=== PATIENT | male | born 1960 | race Caucasian/White ===

== ENCOUNTER 2017-06-22 17:13 | Inpatient (IN) | payer OTHER ==
[~2017-06-22] VITALS: Ht 175.3 cm; Wt 97.0 kg
[2017-06-22] VITALS (9 sets, daily range): BP systolic 153; BP diastolic 88; PULSE 104; RESP 18; TEMP 98.2; O2SAT 98–100
[2017-06-22] MEDS ORDERED: PROPOFOL 1000 MG/100 ML INJ 100 ML ONE (17:21)
[2017-06-22] MEDS ORDERED: DIPHTH/TETANUS/ACEL PERTUSSIS (BOOSTER) 0.5 ML VIAL/PFS IM ONE (17:24)
[2017-06-22] MEDS ORDERED: ceFAZolin 2 GM PREMIX 50 ML ONE (17:24)
[2017-06-22 17:39] LABS: I-STAT POTASSIUM 4.3 MMOL/L (3.5-4.9)
[2017-06-22 17:41] LABS: AUTOMATED NEUTROPHIL # 9.4 TH/MM3 (1.8-7.7); BASOPHIL # 0.1 TH/MM3 (0-0.2); BASOPHIL % 0.4 % (0.0-2.0); EOSINOPHIL % 0.2 % (0.0-4.0); HEMATOCRIT 45.4 % (39.0-51.0); HEMO FLAGS DIFF FINAL; LYMPH % 21.2 % (9.0-44.0); LYMPHOCYTE # 2.7 TH/MM3 (1.0-4.8); MEAN CELL VOLUME 93.1 FL (80.0-100.0); MEAN CORPUSCULAR HEMOGLOBIN 31.6 PG (27.0-34.0); NEUT % 73.2 % (16.0-70.0); PLATELET COUNT 354 TH/MM3 (150-450); RED BLOOD COUNT 4.88 MIL/MM3 (4.50-5.90); RED CELL DISTRIBUTION WIDTH 13.6 % (11.6-17.2); WHITE BLOOD COUNT 12.8 TH/MM3 (4.0-11.0)
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
[2017-06-22] MEDS ORDERED: SODIUM CHLORIDE 0.9% FLUSH 10 ML FLUSH IV FLUSH PRN ×2 (17:45→19:00)
[2017-06-22] MEDS ORDERED: NALOXONE HCL 0.4 MG/ML AMP IV PUSH PRN (17:45)
[2017-06-22] MEDS ORDERED: ONDANSETRON HCL 4 MG/2 ML VIAL IV PUSH PRN ×2 (17:45→19:00)
[2017-06-22] MEDS ORDERED: PROPOFOL 1000 MG/100 ML INJ 100 ML IV PRN (17:45)
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
[2017-06-22 17:57] LABS: APTT (PATIENT) 19.6 SEC (24.3-30.1); PROTHROMBIN TIME - PATIENT 10.7 SEC (9.8-11.6)
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
[2017-06-22] MEDS ORDERED: MAGNESIUM HYDROXIDE SUSP 30 ML CUP PO PRN (19:00)
[2017-06-22] MEDS ORDERED: BISACODYL 10 MG SUPP RECTAL PRN (19:00)
[2017-06-22] MEDS ORDERED: SENNOSIDES 8.6 MG TAB PO PRN (19:00)
[2017-06-22] MEDS ORDERED: LACTULOSE SYRUP 20 GM/30 ML CUP PO PRN (19:00)
[2017-06-22] MEDS ORDERED: RESP: ALBUTEROL 2.5 MG/3 ML NEB (PRN) INH (19:00)
[2017-06-22] MEDS ORDERED: CHLORHEXIDINE GLUCONATE 2 % 1 PACK (2 CLOTHS) TOP PRN (19:00)
[2017-06-22] MEDS ORDERED: GLUCAGON 1 MG/ML VIAL OTHER PRN (19:00)
[2017-06-22] MEDS ORDERED: MISCELLANEOUS NURSING INFORMATION XX SCH (19:00)
[2017-06-22] MEDS ORDERED: DEXTROSE 50% IN WATER 50 ML VIAL(D50) IV PUSH PRN (19:00)
[2017-06-22] MEDS ORDERED: PRED1 PO (19:03)
[2017-06-22] MEDS ORDERED: MELO15TA20 PO (19:03)
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
[2017-06-22] MEDS ORDERED: IOHEXOL 350 MG/ML 10 ML VIAL (for RAD DIAG) IVCONTRAST ONE (19:28)
[2017-06-22] MEDS: PROPOFOL 1000 MG/100 ML IV PRN (19:35)
[2017-06-22 19:40] LABS: BLOOD GAS BASE EXCESS -0.8 mmol/L (-2-2); BLOOD GAS CARBOXYHEMOGLOBIN 0.6 % (0-4); BLOOD GAS HCO3 23 mmol/L (22-26); BLOOD GAS METHEMOGLOBIN 1.3 % (0-2); BLOOD GAS O2 HGB SATURATION 98 % (90-100); BLOOD GAS OXYGEN CONTENT 20.7 Vol % (12.0-20.0); BLOOD GAS PCO2 39 mmHg (38-42); BLOOD GAS PO2 428 mmHg (61-120); BLOOD GAS TOTAL HGB 14.3 G/DL (12.0-16.0); CRITICAL VALUE NO; DRAW SITE RT RADIAL; FIO2 100 %; NUMBER OF ARTERIAL PUNCTURES 1; OXYGEN DEVICE VENTILATOR; STAT NO; TEMP CORR TO 98.6; ULNAR PULSE PRESENT; VENT SETTINGS PRVC/AC
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
[2017-06-22] MEDS: SODIUM CHLOR 0.9% 1000 ML INJ 1,000 ML IV SCH (20:34)
[2017-06-22] MEDS: CHLORHEXIDINE 0.12% (ORAL KIT) 15 ML CUP MT SCH (20:35)
[2017-06-22] MEDS: RESP: ALBUTEROL 2.5 MG/IPRATROPIUM 0.5 MG NEB (SCH) INH (20:44)
[2017-06-22] MEDS ORDERED: SODIUM CHLORIDE 0.9% FLUSH 10 ML FLUSH IV FLUSH SCH (21:00)
[2017-06-22] MEDS: SODIUM CHLORIDE 0.9% FLUSH 10 ML FLUSH IV FLUSH SCH (21:00)
[2017-06-22] MEDS: DOCUSATE SODIUM 50 MG/SENNA 8.6 MG TAB PO SCH (21:20)
[2017-06-22] MEDS: levETIRAcetam INJ 500 MG in SODIUM CHLORIDE 0.9% INJ 100 ML IV SCH (21:20)
[2017-06-22] MEDS: PANTOPRAZOLE SODIUM 40 MG VIAL IV PUSH SCH (21:20)
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
[2017-06-22] MEDS: INSULIN NovoLIN REGULAR SUPPLEMENTAL SCALE SQ SCH (23:42)
[2017-06-23] VITALS (18 sets, daily range): BP systolic 127–154; BP diastolic 77–84; PULSE 16–110; RESP 16–18; TEMP 99–100.6; O2SAT 100
[2017-06-23] MEDS: PROPOFOL 1000 MG/100 ML IV PRN ×8 (01:58→23:51)
[2017-06-23] MEDS: CHLORHEXIDINE GLUCONATE 2 % 1 PACK (2 CLOTHS) TOP SCH (02:53)
[2017-06-23] MEDS: SODIUM CHLOR 0.9% 1000 ML INJ 1,000 ML IV SCH ×3 (03:11→23:52)
[2017-06-23] MEDS: RESP: ALBUTEROL 2.5 MG/IPRATROPIUM 0.5 MG NEB (SCH) INH ×4 (03:29→20:15)
[2017-06-23 05:12] LABS: AUTOMATED NEUTROPHIL # 8.8 TH/MM3 (1.8-7.7); EOSINOPHIL % 0.2 % (0.0-4.0); HEMATOCRIT 40.6 % (39.0-51.0); LYMPH % 15.9 % (9.0-44.0); MEAN CELL VOLUME 93.9 FL (80.0-100.0); MEAN CORPUSCULAR HEMOGLOBIN 32.1 PG (27.0-34.0); MEAN CORPUSCULAR HGB CONC 34.1 % (32.0-36.0); MONO % 13.2 % (0.0-8.0); NEUT % 70.7 % (16.0-70.0); PLATELET COUNT 263 TH/MM3 (150-450); RED BLOOD COUNT 4.32 MIL/MM3 (4.50-5.90); RED CELL DISTRIBUTION WIDTH 13.5 % (11.6-17.2); WHITE BLOOD COUNT 12.4 TH/MM3 (4.0-11.0)
[2017-06-23 05:26] LABS: HEMO FLAGS AUTO DIFF
[2017-06-23 05:38] LABS: BICARBONATE 26.4 MEQ/L (21.0-32.0); MAGNESIUM 2.2 MG/DL (1.5-2.5)
[2017-06-23] MEDS: INSULIN NovoLIN REGULAR SUPPLEMENTAL SCALE SQ SCH ×3 (06:00→18:00)
--- NOTE | 2017-06-23 06:24 | RADRPT ---
EXAM DATE/TIME: 06/23/2017 05:34 [facility] COMPARISON: CHEST SINGLE AP, June 22, 2017, 17:14. INDICATIONS : Shortness of breath. MEDICAL HISTORY : None. SURGICAL HISTORY : None. ENCOUNTER: Subsequent ACUITY: 2 days PAIN SCORE: Non-responsive. LOCATION: Bilateral chest FINDINGS: A single view of the chest demonstrates the endotracheal tube is 1 cm above the ministerio. There is a na sogastric good position. Stable left basilar atelectasis. No visible pneumothorax. The cardiomediast inal contours are unremarkable. Osseous structures are intact. CONCLUSION: ET tube 1 cm above the ministerio. Some atelectasis left lung base Suresh Salazar MD on June 23, 2017 at 6:22 Board Certified Radiologist. This report was verified electronically.
[2017-06-23 07:17] LABS: PLATELET ESTIMATE SMEAR NORMAL (NORMAL); PLATELET MORPHOLOGY NORMAL (NORMAL); SCAN/DIFF AUTO DIFF CONFIRMED; TOXIC GRANULATION 1+ (NORMAL)
[2017-06-23] MEDS: CHLORHEXIDINE 0.12% (ORAL KIT) 15 ML CUP MT SCH ×2 (08:00→23:52)
[2017-06-23 08:54] LABS: BLOOD GAS BASE EXCESS 1.4 mmol/L (-2-2); BLOOD GAS CARBOXYHEMOGLOBIN 1.1 % (0-4); BLOOD GAS HCO3 25 mmol/L (22-26); BLOOD GAS O2 HGB SATURATION 97 % (90-100); BLOOD GAS OXYGEN CONTENT 18.6 Vol % (12.0-20.0); BLOOD GAS PCO2 36 mmHg (38-42); BLOOD GAS PO2 117 mmHg (61-120); BLOOD GAS TOTAL HGB 13.5 G/DL (12.0-16.0); CRITICAL VALUE NO; OXYGEN DEVICE VENTILATOR; TEMP CORR TO 98.6
[2017-06-23 08:55] LABS: DRAW SITE LT RADIAL; FIO2 40 %; NUMBER OF ARTERIAL PUNCTURES 1; STAT NO; ULNAR PULSE PRESENT; VENT SETTINGS PRVC/16/550/1.0/+5
[2017-06-23] MEDS: SODIUM CHLORIDE 0.9% FLUSH 10 ML FLUSH IV FLUSH SCH ×2 (09:00→23:53)
[2017-06-23] MEDS: BACITRACIN OPHT OINT 3.5 GM TUBO LEFT EYE SCH (09:00)
[2017-06-23] MEDS: NEOMYCIN/POLYMYXIN/BACITRACIN OINT 15 GM TUBE TOPICAL SCH ×2 (09:00→23:53)
[2017-06-23] MEDS: POVIDONE IODINE 10% OINT 30 GM TUBE TOPICAL SCH (09:00)
[2017-06-23] MEDS: levETIRAcetam INJ 500 MG in SODIUM CHLORIDE 0.9% INJ 100 ML IV SCH ×2 (09:21→20:39)
[2017-06-23] MEDS: DOCUSATE SODIUM 50 MG/SENNA 8.6 MG TAB PO SCH ×2 (09:21→20:39)
[2017-06-23] MEDS: MULTIVITAMIN TAB PO SCH (09:21)
[2017-06-23] MEDS: FOLIC ACID 1 MG TAB PO SCH (09:21)
[2017-06-23] MEDS: ARTIFICIAL TEARS OPTH SOLN 15 ML BTL EACH EYE SCH ×3 (09:22→18:00)
[2017-06-23] MEDS: THIAMINE INJ 100 MG in SODIUM CHLORIDE 0.9% INJ 100 ML IV SCH (09:22)
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
[2017-06-23] MEDS: fentaNYL 50 MCG/HR PATCH T-DERMAL SCH (10:56)
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
[2017-06-23] MEDS: PANTOPRAZOLE SODIUM 40 MG VIAL IV PUSH SCH (20:39)
[2017-06-24] VITALS (18 sets, daily range): BP systolic 97–159; BP diastolic 56–91; PULSE 82–116; RESP 16–21; TEMP 100–101.8; O2SAT 99–100
[2017-06-24] MEDS: MORPHINE SULFATE 4 MG/ML INJ IV PUSH PRN ×2 (00:29→04:45)
[2017-06-24] MEDS: RESP: ALBUTEROL 2.5 MG/IPRATROPIUM 0.5 MG NEB (SCH) INH ×4 (03:59→20:19)
[2017-06-24] MEDS: CHLORHEXIDINE GLUCONATE 2 % 1 PACK (2 CLOTHS) TOP SCH (04:00)
[2017-06-24 04:13] LABS: AUTOMATED NEUTROPHIL # 8.9 TH/MM3 (1.8-7.7); BASOPHIL # 0.1 TH/MM3 (0-0.2); BASOPHIL % 0.5 % (0.0-2.0); EOSINOPHIL % 0.4 % (0.0-4.0); HEMATOCRIT 38.5 % (39.0-51.0); HEMO FLAGS DIFF FINAL; LYMPH % 15.6 % (9.0-44.0); LYMPHOCYTE # 1.9 TH/MM3 (1.0-4.8); MEAN CELL VOLUME 93.9 FL (80.0-100.0); MEAN CORPUSCULAR HEMOGLOBIN 31.8 PG (27.0-34.0); MEAN CORPUSCULAR HGB CONC 33.8 % (32.0-36.0); MONO % 12.2 % (0.0-8.0); NEUT % 71.3 % (16.0-70.0); PLATELET COUNT 211 TH/MM3 (150-450); RED BLOOD COUNT 4.09 MIL/MM3 (4.50-5.90); RED CELL DISTRIBUTION WIDTH 13.4 % (11.6-17.2); WHITE BLOOD COUNT 12.5 TH/MM3 (4.0-11.0)
[2017-06-24 04:47] LABS: ALKALINE PHOSPHATASE 39 U/L (45-117); ALT (GPT) 54 U/L (12-78); ANION GAP 9 MEQ/L (5-15); AST (GOT) 53 U/L (15-37); BICARBONATE 26.5 MEQ/L (21.0-32.0); BLOOD UREA NITROGEN 9 MG/DL (7-18); CHLORIDE 106 MEQ/L (98-107); GLOMERULAR FILTRATION RATE 76 ML/MIN (>89); POTASSIUM 3.7 MEQ/L (3.5-5.1); SODIUM (NA) 141 MEQ/L (136-145); TOTAL BILIRUBIN ADULT 0.7 MG/DL (0.2-1.0)
[2017-06-24] MEDS: INSULIN NovoLIN REGULAR SUPPLEMENTAL SCALE SQ SCH ×4 (06:00→18:00)
--- NOTE | 2017-06-24 06:29 | RADRPT ---
EXAM DATE/TIME: 06/24/2017 06:02 [facility] COMPARISON: CHEST SINGLE AP, June 23, 2017, 5:34. INDICATIONS : Short of breath. MEDICAL HISTORY : None. SURGICAL HISTORY : None. ENCOUNTER: Subsequent ACUITY: 3 days PAIN SCORE: Non-responsive. LOCATION: Bilateral chest FINDINGS: A single view of the chest demonstrates the endotracheal tube and nasogastric are in good position. M inimal retrocardiac infiltrate is unchanged. Right lung is clear. The cardiomediastinal contours are unremarkable. Osseous structures are intact. CONCLUSION: Normal examination. Suresh Salazar MD on June 24, 2017 at 6:27 Board Certified Radiologist. This report was verified electronically.
[2017-06-24] MEDS: PROPOFOL 1000 MG/100 ML IV PRN ×2 (07:19→20:30)
[2017-06-24] MEDS: CHLORHEXIDINE 0.12% (ORAL KIT) 15 ML CUP MT SCH ×2 (08:00→20:00)
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
[2017-06-24] MEDS: BACITRACIN OPHT OINT 3.5 GM TUBO LEFT EYE SCH (09:00)
[2017-06-24] MEDS: SODIUM CHLORIDE 0.9% FLUSH 10 ML FLUSH IV FLUSH SCH ×2 (09:00→20:23)
[2017-06-24] MEDS: levETIRAcetam INJ 500 MG in SODIUM CHLORIDE 0.9% INJ 100 ML IV SCH ×2 (09:00→20:21)
[2017-06-24] MEDS: NEOMYCIN/POLYMYXIN/BACITRACIN OINT 15 GM TUBE TOPICAL SCH ×2 (09:00→21:00)
[2017-06-24] MEDS: ARTIFICIAL TEARS OPTH SOLN 15 ML BTL EACH EYE SCH ×3 (09:00→17:39)
[2017-06-24] MEDS: POVIDONE IODINE 10% OINT 30 GM TUBE TOPICAL SCH (09:00)
[2017-06-24] MEDS: FOLIC ACID 1 MG TAB PO SCH (09:04)
[2017-06-24] MEDS: MULTIVITAMIN TAB PO SCH (09:04)
[2017-06-24] MEDS: DOCUSATE SODIUM 50 MG/SENNA 8.6 MG TAB PO SCH ×2 (09:04→20:21)
[2017-06-24] MEDS: THIAMINE INJ 100 MG in SODIUM CHLORIDE 0.9% INJ 100 ML IV SCH (09:04)
[2017-06-24] MEDS: SODIUM CHLOR 0.9% 1000 ML INJ 1,000 ML IV SCH (09:39)
[2017-06-24] MEDS: VALPROIC ACID 250 MG CAP PO SCH ×2 (10:15→21:21)
[2017-06-24] MEDS: DEXMEDETOMIDINE INJ 200 MCG in SODIUM CHLORIDE 0.9% INJ 50 ML IV PRN ×2 (10:26→17:39)
[2017-06-24] MEDS: LACTULOSE SYRUP 20 GM/30 ML CUP PO SCH (12:30)
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
--- NOTE | 2017-06-24 14:58 | PD.PLAS.PN ---
Subjective Remarks The patient remains intubated. Vital Signs Date Time Temp Pulse Resp B/P (MAP) Pulse Ox O2 Delivery O2 Flow Rate FiO2 06/24/17 12:11 100 30 06/24/17 12:00 101.8 110 17 114/69 (84) 100 06/24/17 12:00 40 06/24/17 12:00 110 06/24/17 10:00 114 06/24/17 09:47 99 40 06/24/17 08:00 110 06/24/17 08:00 40 06/24/17 08:00 100.1 108 16 138/82 (100) 100 06/24/17 07:00 Mechanical Ventilator 40 06/24/17 06:00 101 06/24/17 04:00 100.4 105 16 134/78 (96) 100 06/24/17 04:00 40 06/24/17 04:00 105 06/24/17 03:53 100 40 06/24/17 02:00 96 06/24/17 00:42 100 40 06/24/17 00:00 100.4 116 21 159/91 (113) 100 06/24/17 00:00 116 06/24/17 00:00 40 06/23/17 22:00 103 06/23/17 20:17 100 40 06/23/17 20:00 100.6 96 16 127/77 (94) 100 06/23/17 20:00 96 06/23/17 20:00 40 06/23/17 19:00 100 Mechanical Ventilator 40 06/23/17 18:00 93 06/23/17 16:35 100 100 06/23/17 16:00 95 06/23/17 16:00 99.7 95 16 142/78 (99) 100 06/23/17 16:00 40 06/23/17 15:41 100 40 I/O 06/23/17 06/23/17 06/23/17 06/24/17 06/24/17 06/24/17 07:00 15:00 23:00 07:00 15:00 23:00 Intake Total 1608 ml 1405 ml 436 ml 1568 ml 520 ml Output Total 2225 ml 75 ml 500 ml Balance -617 ml 1405 ml 361 ml 1068 ml 520 ml Intake IV Total 1578 ml 1405 ml 436 ml 1568 ml 520 ml Tube Irrigant 30 ml Output Urine Total 2100 ml 450 ml Stool Total 0 ml Gastric Drainage Total 125 ml 75 ml 50 ml # Bowel Movements 0 Laboratory Tests Test 06/24/17 03:41 White Blood Count 12.5 Red Blood Count 4.09 Hemoglobin 13.0 Hematocrit 38.5 Mean Corpuscular Volume 93.9 Mean Corpuscular Hemoglobin 31.8 Mean Corpuscular Hemoglobin Concent 33.8 Red Cell Distribution Width 13.4 Platelet Count 211 Mean Platelet Volume 7.6 Neutrophils (%) (Auto) 71.3 Lymphocytes (%) (Auto) 15.6 Monocytes (%) (Auto) 12.2 Eosinophils (%) (Auto) 0.4 Basophils (%) (Auto) 0.5 Neutrophils # (Auto) 8.9 Lymphocytes # (Auto) 1.9 Monocytes # (Auto) 1.5 Eosinophils # (Auto) 0.0 Basophils # (Auto) 0.1 CBC Comment DIFF FINAL Differential Comment Blood Urea Nitrogen 9 Creatinine 1.02 Random Glucose 129 Total Protein 6.5 Albumin 2.9 Calcium Level 8.3 Alkaline Phosphatase 39 Aspartate Amino Transf (AST/SGOT) 53 Alanine Aminotransferase (ALT/SGPT) 54 Total Bilirubin 0.7 Sodium Level 141 Potassium Level 3.7 Chloride Level 106 Carbon Dioxide Level 26.5 Anion Gap 9 Estimat Glomerular Filtration Rate 76 Result Diagram: 06/24/1734006/24/17 034 Exam Findings The wound is healing well without evidence of infection. Impression: (1) Unspecified open wound of left eyelid and periocular area, sequela Plan Impression: The wound is healing well. Plan: We will continue the patient on wound care and have the sutures removed next week. Shivani Goodman MD Jun 24, 2017 14:58
[2017-06-24] MEDS: ACETAMINOPHEN 325 MG TAB PO PRN (15:18)
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
[2017-06-25] VITALS (19 sets, daily range): BP systolic 108–158; BP diastolic 46–87; PULSE 74–118; RESP 16–32; TEMP 98.4–100.8; O2SAT 96–100
[2017-06-25] MEDS: PROPOFOL 1000 MG/100 ML IV PRN ×2 (00:26→04:06)
[2017-06-25] MEDS: CHLORHEXIDINE GLUCONATE 2 % 1 PACK (2 CLOTHS) TOP SCH (04:00)
[2017-06-25] MEDS: RESP: ALBUTEROL 2.5 MG/IPRATROPIUM 0.5 MG NEB (SCH) INH ×4 (04:05→20:00)
[2017-06-25] MEDS: SODIUM CHLOR 0.9% 1000 ML INJ 1,000 ML IV SCH ×2 (04:08→16:03)
[2017-06-25 05:40] LABS: AUTOMATED NEUTROPHIL # 8.1 TH/MM3 (1.8-7.7); BASOPHIL % 0.4 % (0.0-2.0); EOSINOPHIL # 0.2 TH/MM3 (0-0.4); EOSINOPHIL % 1.5 % (0.0-4.0); HEMATOCRIT 33.2 % (39.0-51.0); HEMO FLAGS DIFF FINAL; LYMPH % 17.1 % (9.0-44.0); LYMPHOCYTE # 1.9 TH/MM3 (1.0-4.8); MEAN CELL VOLUME 94.4 FL (80.0-100.0); MEAN CORPUSCULAR HEMOGLOBIN 31.6 PG (27.0-34.0); MEAN CORPUSCULAR HGB CONC 33.5 % (32.0-36.0); MONO % 9.8 % (0.0-8.0); NEUT % 71.2 % (16.0-70.0); PLATELET COUNT 163 TH/MM3 (150-450); RED BLOOD COUNT 3.52 MIL/MM3 (4.50-5.90); RED CELL DISTRIBUTION WIDTH 13.2 % (11.6-17.2); WHITE BLOOD COUNT 11.4 TH/MM3 (4.0-11.0)
[2017-06-25] MEDS: DEXMEDETOMIDINE INJ 200 MCG in SODIUM CHLORIDE 0.9% INJ 50 ML IV PRN ×2 (05:40→10:54)
[2017-06-25 05:43] LABS: BICARBONATE 24.4 MEQ/L (21.0-32.0); POTASSIUM 4.1 MEQ/L (3.5-5.1)
[2017-06-25] MEDS: INSULIN NovoLIN REGULAR SUPPLEMENTAL SCALE SQ SCH ×3 (06:00→12:00)
[2017-06-25] MEDS: CHLORHEXIDINE 0.12% (ORAL KIT) 15 ML CUP MT SCH (08:00)
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
[2017-06-25] MEDS: BACITRACIN OPHT OINT 3.5 GM TUBO LEFT EYE SCH (08:11)
[2017-06-25] MEDS: FOLIC ACID 1 MG TAB PO SCH (08:11)
[2017-06-25] MEDS: DOCUSATE SODIUM 50 MG/SENNA 8.6 MG TAB PO SCH ×2 (08:11→21:00)
[2017-06-25] MEDS: ACETAMINOPHEN 325 MG TAB PO PRN (08:11)
[2017-06-25] MEDS: LACTULOSE SYRUP 20 GM/30 ML CUP PO SCH (08:11)
[2017-06-25] MEDS: VALPROIC ACID 250 MG CAP PO SCH ×3 (08:11→18:00)
[2017-06-25] MEDS: SODIUM CHLORIDE 0.9% FLUSH 10 ML FLUSH IV FLUSH SCH ×2 (08:11→21:00)
[2017-06-25] MEDS: FAMOTIDINE 20 MG TAB PO SCH ×2 (08:11→21:00)
[2017-06-25] MEDS: THIAMINE INJ 100 MG in SODIUM CHLORIDE 0.9% INJ 100 ML IV SCH (08:11)
[2017-06-25] MEDS: levETIRAcetam INJ 500 MG in SODIUM CHLORIDE 0.9% INJ 100 ML IV SCH ×2 (08:11→20:23)
[2017-06-25] MEDS: ARTIFICIAL TEARS OPTH SOLN 15 ML BTL EACH EYE SCH ×2 (08:12→13:00)
[2017-06-25] MEDS: NEOMYCIN/POLYMYXIN/BACITRACIN OINT 15 GM TUBE TOPICAL SCH ×2 (09:00→21:00)
[2017-06-25] MEDS: MULTIVITAMIN TAB PO SCH (09:00)
[2017-06-25] MEDS: POVIDONE IODINE 10% OINT 30 GM TUBE TOPICAL SCH (09:00)
[2017-06-25] MEDS ORDERED: HALOPERIDOL LACTATE 5 MG/ML AMP IV PUSH PRN (09:30)
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
[2017-06-25] MEDS: cefTRIAXone INJ 1,000 MG in SODIUM CHLORIDE 0.9% INJ 100 ML IV SCH (11:33)
[2017-06-25] MEDS: ENOXAPARIN SODIUM 40 MG/0.4 ML SYRINGE SQ SCH (11:33)
[2017-06-25] MEDS: MORPHINE SULFATE 4 MG/ML INJ IV PUSH PRN ×3 (11:33→21:53)
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
[2017-06-25] MEDS ORDERED: ARTIFICIAL TEARS OPTH SOLN 15 ML BTL EACH EYE PRN (15:30)
[2017-06-25] MEDS: ACETAMINOPHEN 1000 MG/100 ML 100 ML IV PRN (17:44)
[2017-06-26] VITALS (15 sets, daily range): BP systolic 149–165; BP diastolic 76–86; PULSE 87–101; RESP 24–31; TEMP 98.1–99; O2SAT 93–97
[2017-06-26] MEDS: MORPHINE SULFATE 4 MG/ML INJ IV PUSH PRN ×2 (01:58→08:36)
[2017-06-26] MEDS: CHLORHEXIDINE GLUCONATE 2 % 1 PACK (2 CLOTHS) TOP SCH (04:00)
[2017-06-26] MEDS: SODIUM CHLOR 0.9% 1000 ML INJ 1,000 ML IV SCH ×2 (04:03→16:43)
[2017-06-26 05:24] LABS: AUTOMATED NEUTROPHIL # 4.2 TH/MM3 (1.8-7.7); BASOPHIL % 0.5 % (0.0-2.0); EOSINOPHIL # 0.3 TH/MM3 (0-0.4); EOSINOPHIL % 4.3 % (0.0-4.0); HEMATOCRIT 30.5 % (39.0-51.0); HEMO FLAGS DIFF FINAL; LYMPH % 14.8 % (9.0-44.0); LYMPHOCYTE # 0.9 TH/MM3 (1.0-4.8); MEAN CELL VOLUME 92.7 FL (80.0-100.0); MEAN CORPUSCULAR HEMOGLOBIN 32.3 PG (27.0-34.0); MEAN CORPUSCULAR HGB CONC 34.8 % (32.0-36.0); MONO % 8.5 % (0.0-8.0); NEUT % 71.9 % (16.0-70.0); PLATELET COUNT 190 TH/MM3 (150-450); RED BLOOD COUNT 3.29 MIL/MM3 (4.50-5.90); RED CELL DISTRIBUTION WIDTH 12.8 % (11.6-17.2); WHITE BLOOD COUNT 5.9 TH/MM3 (4.0-11.0)
[2017-06-26] MEDS: RESP: ALBUTEROL 2.5 MG/IPRATROPIUM 0.5 MG NEB (SCH) INH ×5 (05:25→20:02)
--- NOTE | 2017-06-26 05:54 | RADRPT ---
EXAM DATE/TIME: 06/26/2017 03:51 [place] COMPARISON: CHEST SINGLE AP, June 24, 2017, 6:02. INDICATIONS : Pulmonary contusion. MEDICAL HISTORY : None. SURGICAL HISTORY : None. ENCOUNTER: Subsequent ACUITY: 4 - 6 days PAIN SCORE: Non-responsive. LOCATION: Bilateral chest FINDINGS: Partially confluent areas of airspace opacity in the retrocardiac region with a few air bronchograms. The size of the opacity is increased from prior chest x-ray. The left hemidiaphragm remains well d elineated. There are lung is clear. The heart is stable in configuration. Interval extubation and removal of gastric tube. CONCLUSION: Increasing consolidation in the left lower lobe. Nicko Gill MD on June 26, 2017 at 5:51 Board Certified Radiologist. This report was verified electronically.
[2017-06-26 06:25] LABS: ALKALINE PHOSPHATASE 52 U/L (45-117); ALT (GPT) 84 U/L (12-78); ANION GAP 5 MEQ/L (5-15); AST (GOT) 87 U/L (15-37); BICARBONATE 27.6 MEQ/L (21.0-32.0); BLOOD UREA NITROGEN 11 MG/DL (7-18); CHLORIDE 107 MEQ/L (98-107); GLOMERULAR FILTRATION RATE 113 ML/MIN (>89); POTASSIUM 3.8 MEQ/L (3.5-5.1); SODIUM (NA) 140 MEQ/L (136-145); TOTAL BILIRUBIN ADULT 0.8 MG/DL (0.2-1.0)
[2017-06-26] MEDS: levETIRAcetam INJ 500 MG in SODIUM CHLORIDE 0.9% INJ 100 ML IV SCH ×2 (08:35→20:59)
[2017-06-26] MEDS: VALPROIC ACID 250 MG CAP PO SCH ×3 (08:54→17:26)
[2017-06-26] MEDS: SODIUM CHLORIDE 0.9% FLUSH 10 ML FLUSH IV FLUSH SCH ×2 (08:54→20:59)
[2017-06-26] MEDS: FOLIC ACID 1 MG TAB PO SCH (08:54)
[2017-06-26] MEDS: BACITRACIN OPHT OINT 3.5 GM TUBO LEFT EYE SCH (08:54)
[2017-06-26] MEDS: LACTULOSE SYRUP 20 GM/30 ML CUP PO SCH (08:55)
[2017-06-26] MEDS: MULTIVITAMIN TAB PO SCH (08:55)
[2017-06-26] MEDS: NEOMYCIN/POLYMYXIN/BACITRACIN OINT 15 GM TUBE TOPICAL SCH ×2 (08:55→20:59)
[2017-06-26] MEDS: DOCUSATE SODIUM 50 MG/SENNA 8.6 MG TAB PO SCH ×2 (08:55→21:00)
[2017-06-26] MEDS: FAMOTIDINE 20 MG TAB PO SCH ×2 (08:55→21:00)
[2017-06-26] MEDS: POVIDONE IODINE 10% OINT 30 GM TUBE TOPICAL SCH (09:00)
[2017-06-26] MEDS: LISINOPRIL 10 MG TAB PO SCH (10:00)
[2017-06-26] MEDS ORDERED: REMOVE OLD DURAGESIC (FENTANYL) PATCH T-DERMAL SCH (10:00)
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
[2017-06-26] MEDS: fentaNYL 50 MCG/HR PATCH T-DERMAL SCH (11:09)
[2017-06-26] MEDS: ENOXAPARIN SODIUM 40 MG/0.4 ML SYRINGE SQ SCH (11:09)
[2017-06-26] MEDS: cefTRIAXone INJ 1,000 MG in SODIUM CHLORIDE 0.9% INJ 100 ML IV SCH (11:09)
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
[2017-06-27] VITALS (14 sets, daily range): BP systolic 145–172; BP diastolic 77–89; PULSE 80–98; RESP 21–32; TEMP 97.5–98.9; O2SAT 92–97
[2017-06-27] MEDS: SODIUM CHLOR 0.9% 1000 ML INJ 1,000 ML IV SCH (00:24)
[2017-06-27] MEDS: CHLORHEXIDINE GLUCONATE 2 % 1 PACK (2 CLOTHS) TOP SCH (04:00)
[2017-06-27] MEDS: levETIRAcetam INJ 500 MG in SODIUM CHLORIDE 0.9% INJ 100 ML IV SCH ×2 (08:43→21:00)
[2017-06-27] MEDS: FOLIC ACID 1 MG TAB PO SCH (08:43)
[2017-06-27] MEDS: LACTULOSE SYRUP 20 GM/30 ML CUP PO SCH (08:43)
[2017-06-27] MEDS: METOPROLOL TARTRATE 5 MG/5 ML VIAL IV PUSH SCH ×3 (08:43→21:00)
[2017-06-27] MEDS: FAMOTIDINE 20 MG TAB PO SCH ×2 (08:43→21:00)
[2017-06-27] MEDS: DOCUSATE SODIUM 50 MG/SENNA 8.6 MG TAB PO SCH ×2 (08:43→21:00)
[2017-06-27] MEDS: LISINOPRIL 10 MG TAB PO SCH (08:44)
[2017-06-27] MEDS: POVIDONE IODINE 10% OINT 30 GM TUBE TOPICAL SCH (08:44)
[2017-06-27] MEDS: BACITRACIN OPHT OINT 3.5 GM TUBO LEFT EYE SCH (08:44)
[2017-06-27] MEDS: SODIUM CHLORIDE 0.9% FLUSH 10 ML FLUSH IV FLUSH SCH ×2 (08:44→21:00)
[2017-06-27] MEDS: VALPROIC ACID 250 MG CAP PO SCH ×3 (08:48→17:43)
[2017-06-27] MEDS: MULTIVITAMIN TAB PO SCH (08:48)
[2017-06-27] MEDS: NEOMYCIN/POLYMYXIN/BACITRACIN OINT 15 GM TUBE TOPICAL SCH ×2 (08:49→21:01)
[2017-06-27] MEDS ORDERED: BISACODYL 10 MG SUPP RECTAL SCH (09:00)
[2017-06-27] MEDS: ACETAMINOPHEN 1000 MG/100 ML 100 ML IV PRN ×2 (09:02→17:43)
[2017-06-27] MEDS: cefTRIAXone INJ 1,000 MG in SODIUM CHLORIDE 0.9% INJ 100 ML IV SCH (09:02)
[2017-06-27] MEDS: ENOXAPARIN SODIUM 40 MG/0.4 ML SYRINGE SQ SCH (09:02)
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
[2017-06-27] MEDS: predniSONE 5 MG TAB PO SCH (12:00)
[2017-06-27] MEDS: LIDOCAINE HCL 5% PATCH T-DERMAL SCH (12:00)
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
[2017-06-27] MEDS: traZODone HCL 50 MG TAB PO SCH (21:00)
[2017-06-28] VITALS (9 sets, daily range): BP systolic 104–167; BP diastolic 59–87; PULSE 85–107; RESP 16–24; TEMP 98.7–99; O2SAT 92–98
[2017-06-28] MEDS: METOPROLOL TARTRATE 5 MG/5 ML VIAL IV PUSH SCH ×2 (02:15→08:24)
[2017-06-28] MEDS: CHLORHEXIDINE GLUCONATE 2 % 1 PACK (2 CLOTHS) TOP SCH (04:00)
--- NOTE | 2017-06-28 04:25 | RADRPT ---
EXAM DATE/TIME: 06/28/2017 03:57 [facility] COMPARISON: CHEST SINGLE AP, June 26, 2017, 3:51. INDICATIONS : Evaluate for pneumonia MEDICAL HISTORY : None. SURGICAL HISTORY : None. ENCOUNTER: Subsequent ACUITY: 4 - 6 days PAIN SCORE: 6/10 LOCATION: Bilateral chest FINDINGS: A single view of the chest demonstrates the lungs to be symmetrically aerated without evidence of mas s, infiltrate or effusion. The cardiomediastinal contours are unremarkable. Osseous structures are intact. CONCLUSION: No evidence of acute cardiopulmonary disease. Eb Mills MD on June 28, 2017 at 4:23 Board Certified Radiologist. This report was verified electronically.
[2017-06-28 04:39] LABS: AUTOMATED NEUTROPHIL # 4.2 TH/MM3 (1.8-7.7); BASOPHIL % 0.7 % (0.0-2.0); EOSINOPHIL # 0.3 TH/MM3 (0-0.4); EOSINOPHIL % 5.2 % (0.0-4.0); HEMATOCRIT 37.8 % (39.0-51.0); LYMPH % 16.6 % (9.0-44.0); MEAN CELL VOLUME 92.1 FL (80.0-100.0); MEAN CORPUSCULAR HEMOGLOBIN 31.6 PG (27.0-34.0); MEAN CORPUSCULAR HGB CONC 34.4 % (32.0-36.0); MONO % 10.3 % (0.0-8.0); NEUT % 67.2 % (16.0-70.0); PLATELET COUNT 336 TH/MM3 (150-450); RED CELL DISTRIBUTION WIDTH 12.9 % (11.6-17.2); WHITE BLOOD COUNT 6.2 TH/MM3 (4.0-11.0)
[2017-06-28 04:41] LABS: HEMO FLAGS AUTO DIFF
[2017-06-28 05:09] LABS: ALKALINE PHOSPHATASE 84 U/L (45-117); ALT (GPT) 151 U/L (12-78); ANION GAP 8 MEQ/L (5-15); AST (GOT) 109 U/L (15-37); BICARBONATE 29.8 MEQ/L (21.0-32.0); BLOOD UREA NITROGEN 14 MG/DL (7-18); CHLORIDE 100 MEQ/L (98-107); GLOMERULAR FILTRATION RATE 99 ML/MIN (>89); POTASSIUM 3.6 MEQ/L (3.5-5.1); SODIUM (NA) 138 MEQ/L (136-145); TOTAL BILIRUBIN ADULT 1.1 MG/DL (0.2-1.0)
--- NOTE | 2017-06-28 05:36 | RADRPT ---
EXAM DATE/TIME: 06/28/2017 05:14 [facility] COMPARISON: CT BRAIN W/O CONTRAST, June 23, 2017, 16:29. INDICATIONS : Follow up hemorrhage. RADIATION DOSE: 39.28 CTDIvol (mGy) MEDICAL HISTORY : Non-responsive. SURGICAL HISTORY : Non-responsive. ENCOUNTER: Subsequent ACUITY: 1 week PAIN SCALE: Non-responsive LOCATION: cranial TECHNIQUE: Multiple contiguous axial images were obtained of the head. Using automated exposure control and adj ustment of the mA and/or kV according to patient size, radiation dose was kept as low as reasonably a chievable to obtain optimal diagnostic quality images. DICOM format image data is available electro nically for review and comparison. FINDINGS: Minimal subarachnoid hemorrhage in the sulci of both convexities, most conspicuous on the right and d ecreasing in the interim. Mildly prominent bifrontal subdural spaces again seen, measuring 6-7 mm in maximal thickness. There is no new or acute blood. No midline shift. No mass lesion. No evidence of an acute ischemic event. CONCLUSION: 1. Acute subarachnoid hemorrhage is resolving, now minimal. 2. Nonacute small subdural hematomas and/or cystic hygromas are not significantly changed. 3. No new or increasing blood. No midline shift. Eb Mills MD on June 28, 2017 at 5:31 Board Certified Radiologist. This report was verified electronically.
[2017-06-28 07:03] LABS: BANDS 4 % (0-6); BASOPHILS 1 % (0-2); EOSINOPHILS 2 % (0-4); MYELOCYTES 2 % (0-0); NEUTROPHIL # MANUAL DIFF 4.3 TH/MM3 (1.8-7.7); PLATELET ESTIMATE SMEAR NORMAL (NORMAL); PLATELET MORPHOLOGY NORMAL (NORMAL); POLYS (SEG NEUTROPHILS) 63 % (16-70); PROMYELOCYTES 1 % (0-0); SCAN/DIFF FINAL DIFF MANUAL; WBC DIFF SAMPLE 100
[2017-06-28] MEDS: SODIUM CHLORIDE 0.9% FLUSH 10 ML FLUSH IV FLUSH SCH ×2 (08:19→22:22)
[2017-06-28] MEDS: ACETAMINOPHEN 1000 MG/100 ML 100 ML IV PRN (08:20)
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
[2017-06-28] MEDS: LISINOPRIL 10 MG TAB PO SCH (08:22)
[2017-06-28] MEDS: FAMOTIDINE 20 MG TAB PO SCH ×2 (08:22→22:24)
[2017-06-28] MEDS: FOLIC ACID 1 MG TAB PO SCH (08:22)
[2017-06-28] MEDS: VALPROIC ACID 250 MG CAP PO SCH ×4 (08:22→22:24)
[2017-06-28] MEDS: MULTIVITAMIN TAB PO SCH (08:22)
[2017-06-28] MEDS: LACTULOSE SYRUP 20 GM/30 ML CUP PO SCH (08:23)
[2017-06-28] MEDS: predniSONE 5 MG TAB PO SCH (08:23)
[2017-06-28] MEDS: LIDOCAINE HCL 5% PATCH T-DERMAL SCH (08:23)
[2017-06-28] MEDS: DOCUSATE SODIUM 50 MG/SENNA 8.6 MG TAB PO SCH ×2 (08:23→22:25)
[2017-06-28] MEDS: levETIRAcetam INJ 500 MG in SODIUM CHLORIDE 0.9% INJ 100 ML IV SCH ×2 (08:24→22:23)
[2017-06-28] MEDS: NEOMYCIN/POLYMYXIN/BACITRACIN OINT 15 GM TUBE TOPICAL SCH ×2 (08:25→22:26)
[2017-06-28] MEDS: BACITRACIN OPHT OINT 3.5 GM TUBO LEFT EYE SCH (08:25)
[2017-06-28] MEDS ORDERED: BUMETANIDE INJ 1 MG/4 ML VIAL IV PUSH ONE (10:00)
[2017-06-28] MEDS: POVIDONE IODINE 10% OINT 30 GM TUBE TOPICAL SCH (10:02)
[2017-06-28] MEDS: ENOXAPARIN SODIUM 40 MG/0.4 ML SYRINGE SQ SCH (10:03)
[2017-06-28] MEDS: cefTRIAXone INJ 1,000 MG in SODIUM CHLORIDE 0.9% INJ 100 ML IV SCH (10:05)
[2017-06-28] MEDS: METOPROLOL SUCCINATE 25 MG EXTENDED RELEASE TAB PO SCH (10:08)
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
[2017-06-28] MEDS: traZODone HCL 50 MG TAB PO SCH ×2 (21:00→22:25)
[2017-06-29 00:23] VITALS: BP 128/75; PULSE 106; RESP 17; TEMP 99.6; O2SAT 92
[2017-06-29] MEDS: CHLORHEXIDINE GLUCONATE 2 % 1 PACK (2 CLOTHS) TOP SCH (03:57)
[2017-06-29 04:42] VITALS: BP 105/63; PULSE 98; RESP 17; TEMP 99.1; O2SAT 93
[2017-06-29 08:01] VITALS: BP 137/76; PULSE 91; RESP 18; TEMP 97.9; O2SAT 92
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
[2017-06-29] MEDS: levETIRAcetam INJ 500 MG in SODIUM CHLORIDE 0.9% INJ 100 ML IV SCH ×2 (08:27→23:21)
[2017-06-29] MEDS: SODIUM CHLORIDE 0.9% FLUSH 10 ML FLUSH IV FLUSH SCH ×2 (08:27→21:00)
[2017-06-29] MEDS: BACITRACIN OPHT OINT 3.5 GM TUBO LEFT EYE SCH (08:28)
[2017-06-29] MEDS: POVIDONE IODINE 10% OINT 30 GM TUBE TOPICAL SCH (08:31)
[2017-06-29] MEDS: LIDOCAINE HCL 5% PATCH T-DERMAL SCH (08:32)
[2017-06-29] MEDS: NEOMYCIN/POLYMYXIN/BACITRACIN OINT 15 GM TUBE TOPICAL SCH ×2 (08:32→21:00)
[2017-06-29] MEDS: FOLIC ACID 1 MG TAB PO SCH (08:35)
[2017-06-29] MEDS: MULTIVITAMIN TAB PO SCH (08:35)
[2017-06-29] MEDS: predniSONE 5 MG TAB PO SCH (08:35)
[2017-06-29] MEDS: FAMOTIDINE 20 MG TAB PO SCH ×2 (08:35→23:20)
[2017-06-29] MEDS: VALPROIC ACID 250 MG CAP PO SCH ×4 (08:35→23:21)
[2017-06-29] MEDS: METOPROLOL SUCCINATE 25 MG EXTENDED RELEASE TAB PO SCH (08:35)
[2017-06-29] MEDS: DOCUSATE SODIUM 50 MG/SENNA 8.6 MG TAB PO SCH ×2 (08:36→23:21)
[2017-06-29] MEDS: LISINOPRIL 10 MG TAB PO SCH (08:36)
[2017-06-29] MEDS: LACTULOSE SYRUP 20 GM/30 ML CUP PO SCH (08:36)
[2017-06-29] MEDS: ENOXAPARIN SODIUM 40 MG/0.4 ML SYRINGE SQ SCH (10:24)
[2017-06-29] MEDS: cefTRIAXone INJ 1,000 MG in SODIUM CHLORIDE 0.9% INJ 100 ML IV SCH (10:26)
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
[2017-06-29 12:00] VITALS: BP 122/73; PULSE 97; RESP 18; TEMP 98.4; O2SAT 91
[2017-06-29] MEDS ORDERED: TRIPOIN TOPICAL (14:34)
[2017-06-29] MEDS ORDERED: METO1TAB42 PO (14:34)
[2017-06-29] MEDS ORDERED: LISI10TA3 PO (14:34)
[2017-06-29] MEDS ORDERED: TRAZ50TA12 PO (14:34)
[2017-06-29] MEDS ORDERED: LIDO1ADH4 T-DERMAL (14:34)
[2017-06-29] MEDS ORDERED: ENOX40P SQ (14:34)
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
[2017-06-29 16:00] VITALS: BP 140/87; PULSE 95; RESP 18; TEMP 99.4; O2SAT 90
[2017-06-29 20:55] VITALS: BP 113/77; PULSE 101; RESP 21; TEMP 98.1; O2SAT 93
[2017-06-29] MEDS: traZODone HCL 50 MG TAB PO SCH (23:22)
[2017-06-30 00:30] VITALS: BP 121/68; PULSE 97; RESP 20; TEMP 98; O2SAT 93
[2017-06-30] MEDS: CHLORHEXIDINE GLUCONATE 2 % 1 PACK (2 CLOTHS) TOP SCH (04:00)
[2017-06-30 05:39] VITALS: BP 103/53; PULSE 79; RESP 20; TEMP 98.7; O2SAT 95
[2017-06-30 06:26] LABS: AUTOMATED NEUTROPHIL # 4.3 TH/MM3 (1.8-7.7); BASOPHIL # 0.1 TH/MM3 (0-0.2); BASOPHIL % 0.8 % (0.0-2.0); EOSINOPHIL # 0.4 TH/MM3 (0-0.4); EOSINOPHIL % 4.8 % (0.0-4.0); HEMATOCRIT 36.1 % (39.0-51.0); LYMPH % 25.3 % (9.0-44.0); LYMPHOCYTE # 1.9 TH/MM3 (1.0-4.8); MEAN CELL VOLUME 91.5 FL (80.0-100.0); MEAN CORPUSCULAR HEMOGLOBIN 31.2 PG (27.0-34.0); MEAN CORPUSCULAR HGB CONC 34.1 % (32.0-36.0); MONO % 12.6 % (0.0-8.0); NEUT % 56.5 % (16.0-70.0); PLATELET COUNT 374 TH/MM3 (150-450); RED BLOOD COUNT 3.94 MIL/MM3 (4.50-5.90); RED CELL DISTRIBUTION WIDTH 12.7 % (11.6-17.2); WHITE BLOOD COUNT 7.6 TH/MM3 (4.0-11.0)
[2017-06-30 06:37] LABS: HEMO FLAGS AUTO DIFF
[2017-06-30 06:50] LABS: ALT (GPT) 229 U/L (12-78); ANION GAP 10 MEQ/L (5-15); AST (GOT) 109 U/L (15-37); BICARBONATE 28.1 MEQ/L (21.0-32.0); BLOOD UREA NITROGEN 25 MG/DL (7-18); CHLORIDE 101 MEQ/L (98-107); GLOMERULAR FILTRATION RATE 85 ML/MIN (>89); POTASSIUM 3.4 MEQ/L (3.5-5.1); SODIUM (NA) 139 MEQ/L (136-145)
[2017-06-30 06:52] LABS: ALKALINE PHOSPHATASE 90 U/L (45-117); TOTAL BILIRUBIN ADULT 0.9 MG/DL (0.2-1.0)
[2017-06-30 07:38] VITALS: BP 141/74; PULSE 80; RESP 16; TEMP 97.1; O2SAT 93
[2017-06-30] MEDS: NEOMYCIN/POLYMYXIN/BACITRACIN OINT 15 GM TUBE TOPICAL SCH (08:29)
[2017-06-30] MEDS: POVIDONE IODINE 10% OINT 30 GM TUBE TOPICAL SCH (08:29)
[2017-06-30] MEDS: BACITRACIN OPHT OINT 3.5 GM TUBO LEFT EYE SCH (08:29)
[2017-06-30] MEDS: DOCUSATE SODIUM 50 MG/SENNA 8.6 MG TAB PO SCH (08:33)
[2017-06-30] MEDS: VALPROIC ACID 250 MG CAP PO SCH (08:33)
[2017-06-30] MEDS: MULTIVITAMIN TAB PO SCH (08:33)
[2017-06-30] MEDS: LIDOCAINE HCL 5% PATCH T-DERMAL SCH (08:33)
[2017-06-30] MEDS: FOLIC ACID 1 MG TAB PO SCH (08:33)
[2017-06-30] MEDS: LISINOPRIL 10 MG TAB PO SCH (08:33)
[2017-06-30] MEDS: SODIUM CHLORIDE 0.9% FLUSH 10 ML FLUSH IV FLUSH SCH (08:33)
[2017-06-30] MEDS: METOPROLOL SUCCINATE 25 MG EXTENDED RELEASE TAB PO SCH (08:34)
[2017-06-30 08:38] LABS: BANDS 6 % (0-6); BASOPHILS 1 % (0-2); CORRECTED NUCLEATED RBC 1 /100 WBC (0-0); EOSINOPHILS 8 % (0-4); METAMYELOCYTES 1 % (0-1); MYELOCYTES 2 % (0-0); NEUTROPHIL # MANUAL DIFF 4.9 TH/MM3 (1.8-7.7); POLYS (SEG NEUTROPHILS) 56 % (16-70); WBC DIFF SAMPLE 100
[2017-06-30 08:39] LABS: PLATELET ESTIMATE SMEAR NORMAL (NORMAL); PLATELET MORPHOLOGY NORMAL (NORMAL); SCAN/DIFF FINAL DIFF MANUAL; TOXIC GRANULATION 1+ (NORMAL)
[2017-06-30] MEDS ORDERED: traMADol HCL 50 MG TAB PO PRN (09:00)
[2017-06-30] MEDS ORDERED: CEFT1INJ2 IV (10:56)
[2017-06-30] MEDS ORDERED: VALP250 PO (10:56)
[2017-06-30] MEDS ORDERED: TRAM50 PO (10:56)
[2017-06-30] MEDS: cefTRIAXone INJ 1,000 MG in SODIUM CHLORIDE 0.9% INJ 100 ML IV SCH (11:26)
[2017-06-30] MEDS: ENOXAPARIN SODIUM 40 MG/0.4 ML SYRINGE SQ SCH (11:26)
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
[2017-06-30 11:48] VITALS: BP 123/75; PULSE 87; RESP 17; TEMP 97.3; O2SAT 98
[2017-06-30] MEDS ORDERED: VALPROIC ACID 250 MG CAP PO SCH (13:00)
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
== END 2017-06-30 17:49 | DRG 963 ==
LOC: NEPI 17:13 → EDBD 17:37 → NEDA 17:37 → N03B 18:16 → N05B 06-28 17:52
PROVIDERS: ADMIT Surgery; ATTEND Surgery
PROC: 0HQ1XZZ Repair Face Skin, External Approach (ICD-10-PCS; principal; 2017-06-22)
PROC: 5A1945Z Respiratory Ventilation, 24-96 Consecutive Hours (ICD-10-PCS; 2017-06-22)
PROC: 08QPXZZ Repair Left Upper Eyelid, External Approach (ICD-10-PCS; 2017-06-22)
PROC: 0HB1XZZ Excision of Face Skin, External Approach (ICD-10-PCS; 2017-06-22)
DX: S06.6X9A Traumatic subarachnoid hemorrhage with loss of consciousness of unspecified duration, initial encounter (principal); J96.00 Acute respiratory failure, unspecified whether with hypoxia or hypercapnia; S27.321A Contusion of lung, unilateral, initial encounter; S22.42XA Multiple fractures of ribs, left side, initial encounter for closed fracture; S02.32XA Fracture of orbital floor, left side, initial encounter for closed fracture; S81.812A Laceration without foreign body, left lower leg, initial encounter; S02.40DA Maxillary fracture, left side, initial encounter for closed fracture; S01.112A Laceration without foreign body of left eyelid and periocular area, initial encounter; S01.81XA Laceration without foreign body of other part of head, initial encounter; I10 Essential (primary) hypertension; D72.829 Elevated white blood cell count, unspecified; S02.40FA Zygomatic fracture, left side, initial encounter for closed fracture; S80.12XA Contusion of left lower leg, initial encounter; R40.2421 Glasgow coma scale score 9-12, in the field [EMT or ambulance]; S80.11XA Contusion of right lower leg, initial encounter; R73.9 Hyperglycemia, unspecified; R91.8 Other nonspecific abnormal finding of lung field; F02.80 Dementia in other diseases classified elsewhere, unspecified severity, without behavioral disturbance, psychotic disturbance, mood disturbance, and anxiety; H57.02 Anisocoria; R50.9 Fever, unspecified; M17.12 Unilateral primary osteoarthritis, left knee; R79.89 Other specified abnormal findings of blood chemistry; B95.61 Methicillin susceptible Staphylococcus aureus infection as the cause of diseases classified elsewhere; B95.4 Other streptococcus as the cause of diseases classified elsewhere; W22.09XA Striking against other stationary object, initial encounter; Y93.18 Activity, surfing, windsurfing and boogie boarding
CPT/HCPCS: 36600; 70450; 70486; 71010; 71260; 72125; 72128; 72131; 73590; 74177; 80048; 80053; 80307; 82435; 82565; 82805; 82947; 82948; 83735; 84100; 84132; 84295; 84520; 85007; 85025; 85027; 85610; 85730; 86403; 86850; 86900; 86901; 87040; 87070; 87077; 87086; 87147; 87186; 87205; 87641; 90471; 90715; 94002; 94003; 94150; 94640; 94667; 94668; 96374; 99291; C9113; G0390; J0131; J0690; J0696; J1630; J1650; J1953; J2270; J2405; J3411; J7030; J7512; Q9967